=== PATIENT | female | born 1940 | race Caucasian/White ===

== ENCOUNTER 2017-08-10 06:19 | Day surgery (SDC) | payer MEDICARE ==
[~2017-08-10] VITALS: Ht 167.6 cm; Wt 41.5 kg
[~2017-08-10 06:19] MED LIST: ATORVASTATIN PO; CHOL100040 PO; FERR-82 PO; HYDR25TA PO; KRIL1CAP19 PO; LEVO88TA7 PO; LISI-613 PO; MULTIVITAMIN PO; NIAC500C3 PO; OMEP40CA37 PO; SERT50TA12 PO; UBID50TA3 PO; flax seed; stool softner
[2017-08-10] MEDS ORDERED: SODIUM CHLORIDE 0.9% 1000ML 1,000 ML IV ONE (06:41)
[2017-08-10 07:01] VITALS: BP 206/86
[2017-08-10 07:14] VITALS: BP 110/58
[2017-08-10] MEDS ORDERED: ASPI-555 PO (07:16)
[2017-08-10] MEDS ORDERED: PROPOFOL 10 MG/ML 20ML VIAL IV ONE (07:58)
[2017-08-10 08:14] VITALS: BP 110/58
== END 2017-08-10 08:40 | disposition home or self-care (01) ==
LOC: DAH 06:19
PROVIDERS: ATTEND Internal Medicine Gastroenterology
DX: K21.9 Gastro-esophageal reflux disease without esophagitis (principal); K62.1 Rectal polyp; K31.7 Polyp of stomach and duodenum; D50.0 Iron deficiency anemia secondary to blood loss (chronic); Z86.010 Personal history of colon polyps; I10 Essential (primary) hypertension; E78.5 Hyperlipidemia, unspecified; E11.9 Type 2 diabetes mellitus without complications; E03.9 Hypothyroidism, unspecified; K57.30 Diverticulosis of large intestine without perforation or abscess without bleeding; G47.33 Obstructive sleep apnea (adult) (pediatric); M19.90 Unspecified osteoarthritis, unspecified site; Z79.899 Other long term (current) drug therapy; Z79.84 Long term (current) use of oral hypoglycemic drugs; Z68.37 Body mass index [BMI] 37.0-37.9, adult
CPT/HCPCS: 43235; 82948 ×2; 93005; A4606; J2704; J7030

== ENCOUNTER → 2018-08-04 | Outpatient (CLI) | payer MEDICARE ==
[~2018-08-04] MED LIST changes: +ASPI-555 PO; -FERR-82 PO; -OMEP40CA37 PO
== END | disposition home or self-care (01) ==
LOC: RAH 07:11
PROVIDERS: ATTEND Orthopaedic Surgery
DX: S83.241A Other tear of medial meniscus, current injury, right knee, initial encounter (principal); S83.281A Other tear of lateral meniscus, current injury, right knee, initial encounter; S83.511A Sprain of anterior cruciate ligament of right knee, initial encounter; M17.11 Unilateral primary osteoarthritis, right knee; M25.461 Effusion, right knee; X58.XXXA Exposure to other specified factors, initial encounter; Y93.89 Activity, other specified; Y92.89 Other specified places as the place of occurrence of the external cause; Y99.8 Other external cause status
CPT/HCPCS: 73721

== ENCOUNTER 2019-04-01 06:47 | Day surgery (SDC) | payer MEDICARE ==
[2019-03-31 15:55] LABS: BASOPHILS % (AUTO) 0.9 % (0.0-5.0); EOSINOPHILS % (AUTO) 2.2 % (0.0-8.0); HEMATOCRIT 44.6 % (36-48); LYMPHOCYTES % (AUTO) 30.8 % (21.0-51.0); MEAN CORPUSCULAR HEMOGLOBIN 30.1 pg (27.0-33.0); MEAN CORPUSCULAR HGB CONC 33.7 g/dL (32.0-36.0); MEAN CORPUSCULAR VOLUME 89.2 fL (79-99); MONOCYTES % (AUTO) 10.3 % (3.0-13.0); NEUTROPHILS % (AUTO) 55.8 % (40.0-77.0); PLATELET COUNT (AUTO) 205 K/uL (130-400); RED CELL DISTRIBUTION WIDTH 14.1 % (11.0-15.5); WHITE BLOOD COUNT (AUTO) 7.6 K/uL (4.8-10.8)
[2019-03-31 16:11] LABS: CREATININE 0.8 mg/dL (0.5-1.5); POTASSIUM 5.2 mmol/L (3.5-5.1)
[2019-03-31 17:20] VITALS: BP 187/99
--- NOTE | 2019-03-31 18:38 | NUR ---
POTASSIUM INFORMED DR. DUNCAN OF ABNORMAL POTASSIUM LEVEL. NO ORDERS RECEIVED. PROCEED WITH PLANNED PROCEDURE.
[2019-04-01] VITALS (20 sets, daily range): BP systolic 107–154; BP diastolic 45–89
[~2019-04-01] VITALS: Ht 162.6 cm; Wt 81.4 kg
[~2019-04-01 06:47] MED LIST changes: -CHOL100040 PO; -HYDR25TA PO; -KRIL1CAP19 PO; -MULTIVITAMIN PO; +PREMC VG; -UBID50TA3 PO; -flax seed; -stool softner
[2019-04-01] MEDS ORDERED: LACTATED RINGERS 1000ML 1,000 ML IV ONE (07:45)
[2019-04-01] MEDS ORDERED: SCOPOLAMINE HYDROBROMIDE 1 EACH ADH..PATCH TD ONE (07:54)
[2019-04-01] MEDS: CEFAZOLIN SODIUM 1 GM VIAL IVP ONE ×2 (07:59→09:44)
[2019-04-01] MEDS ORDERED: GLYCOPYRROLATE 1 MG/5 ML SYRINGE ONE (08:27)
[2019-04-01] MEDS ORDERED: PROPOFOL 10 MG/ML 20ML VIAL IV ONE (08:27)
[2019-04-01] MEDS ORDERED: MIDAZOLAM HCL 1 MG/ML 2ML VIAL ONE (08:27)
[2019-04-01] MEDS ORDERED: LIDOCAINE PF 2% 5ML ABBOJECT ONE (08:27)
[2019-04-01] MEDS ORDERED: ROCURONIUM 10MG/1ML SYR 10 MG/ML ML ONE (08:28)
[2019-04-01] MEDS ORDERED: FENTANYL CITRATE PF 50 MCG/1 ML 2ML VIAL ONE (08:28)
[2019-04-01] MEDS ORDERED: NEOSTIGMINE 5MG/5ML SYR IV ONE (08:28)
[2019-04-01] MEDS ORDERED: DEXAMETHASONE SOD PHOSPHATE 4 MG/ML 1ML VIAL ONE (09:48)
[2019-04-01] MEDS ORDERED: ONDANSETRON HCL 4 MG/2 ML VIAL ONE (09:48)
[2019-04-01] MEDS ORDERED: EPHEDRINE SULFATE 50 MG/ML AMPULE ONE (10:02)
[2019-04-01] MEDS ORDERED: ACET1TAB12 PO (10:44)
[2019-04-01] MEDS ORDERED: CEPH500B PO (10:44)
[2019-04-01] MEDS ORDERED: NAPR-1192 PO (10:44)
[2019-04-01] MEDS ORDERED: RACEPINEPHRINE HCL 2.25% 0.5 ML NEB SOLN ONE (10:51)
--- NOTE | 2019-04-01 15:45 | NUR ---
gave discharge instructions to patient and family , no concerns voiced , pt received crutches.
== END 2019-04-01 13:30 | disposition home or self-care (01) ==
LOC: DAH 06:47
PROVIDERS: ATTEND Orthopaedic Surgery
DX: M23.203 Derangement of unspecified medial meniscus due to old tear or injury, right knee (principal); M23.251 Derangement of posterior horn of lateral meniscus due to old tear or injury, right knee; M94.261 Chondromalacia, right knee; M25.561 Pain in right knee; F41.9 Anxiety disorder, unspecified; M19.90 Unspecified osteoarthritis, unspecified site; E11.9 Type 2 diabetes mellitus without complications; G47.33 Obstructive sleep apnea (adult) (pediatric); E03.9 Hypothyroidism, unspecified; E78.5 Hyperlipidemia, unspecified; I10 Essential (primary) hypertension; Z79.899 Other long term (current) drug therapy; Z79.82 Long term (current) use of aspirin; Z87.891 Personal history of nicotine dependence; Z98.890 Other specified postprocedural states; Z82.49 Family history of ischemic heart disease and other diseases of the circulatory system
CPT/HCPCS: 29880; 36415; 80048; 82948; 85025; 94640; A4213; A4215; A4221; A4222; A4223; A4606; A4649; A4663; A4930; A5120; A6223; J0690; J1100; J2001; J2250; J2405; J2704; J2710; J3010; J3490 ×2; J7120

== ENCOUNTER → 2024-04-28 | Outpatient (CLI) | payer MEDICARE ==
[~2024-04-28] MED LIST changes: +ACET1TAB12 PO; -ASPI-555 PO; +ASPI-556 PO; +CEPH500B PO; -LISI-613 PO; +LISI20TA24 PO; +NAPR-1192 PO; -NIAC500C3 PO; +NIAC500C9 PO; +SERT-439 PO; -SERT50TA12 PO
--- NOTE | 2024-04-28 15:43 | HMCSR ---
APPROVED REPORT Laterality: Bilateral Indications r09.89 Doppler Spectral Velocity Analysis PSV / EDVPSV / EDV ECA (R) 97 / cm/sECA (L) 763 / cm/s dICA (R) 117 / 17 cm/sdICA (L) 68 / 20 cm/s Virgilio (R) 129 / 14 cm/smICA (L) 142 / 11 cm/s pICA (R) 134 / 23 cm/spICA (L) 461 / 73 cm/s dCCA (R) 75 / 13 cm/sdCCA (L) 85 / 13 cm/s mCCA (R) 74 / 10 cm/smCCA (L) 76 / 12 cm/s pCCA (R) 52 / 9 cm/spCCA (L) 82 / 10 cm/s Vert (R) Vert (L) 71 / cm/s Subl. (R) 641 / cm/sSubl. (L) 159 / cm/s ICA/CCA 1.79ICA/CCA 5.42 Technologist Impression Mild plaque noted in the right carotids. Evidence of 50-69% stenosis in the Right ICA with tortuousity. Right vertebral artery demonstrates retrograde flow, with velocities in the subclavian artery suggest ing >70% stenosis. Moderate plaque noted in the left carotids. Evidence of >70% stenosis in the Left ICA. Left vertebral artery appears antegrade. Conclusion As above. Conclusion As above.
== END | disposition home or self-care (01) ==
LOC: SHCH 13:42
PROVIDERS: ATTEND Internal Medicine Cardiovascular Disease
DX: I65.23 Occlusion and stenosis of bilateral carotid arteries (principal); R09.89 Other specified symptoms and signs involving the circulatory and respiratory systems
CPT/HCPCS: 93880

== ENCOUNTER → 2025-03-24 | Outpatient (CLI) | payer MEDICARE ==
--- NOTE | 2025-03-24 15:10 | HMCIMG ---
EXAM: DUPLEX ULTRASOUND OF THE CAROTID AND VERTEBRAL ARTERIES CLINICAL INFORMATION: Bilateral carotid stenosis. TECHNIQUE: Duplex ultrasound evaluation of the bilateral common, internal, and external carotid arteries and vertebral arteries was performed using hernandez-scale, color Doppler, and spectral Doppler with peak systolic velocity measurements. COMPARISON: None provided. FINDINGS: RIGHT CAROTID SYSTEM: Right common carotid artery peak systolic velocity is 83 cm/s, and right internal carotid artery peak systolic velocity is 218 cm/s with ICA to CCA ratio of 2.6, consistent with approximately 50???69% diameter stenosis by NASCET-equivalent Doppler criteria. RIGHT EXTERNAL CAROTID ARTERY: Right external carotid artery peak systolic velocity is 106 cm/s, without evidence of hemodynamically significant stenosis on Doppler criteria. 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 LEFT CAROTID SYSTEM: Left common carotid artery peak systolic velocity is 101 cm/s, and left internal carotid artery peak systolic velocity is 117 cm/s with ICA to CCA ratio of 1.2, consistent with less than 50% diameter stenosis. LEFT EXTERNAL CAROTID ARTERY: Left external carotid artery peak systolic velocity is 207 cm/s, which may reflect increased flow without definite hemodynamically significant carotid bifurcation stenosis on Doppler criteria. LEFT VERTEBRAL ARTERY: Left vertebral artery demonstrates antegrade flow with peak systolic velocity of 67 cm/s, without hemodynamically significant stenosis. IMPRESSION: * Moderate (approximately 50???69%) diameter stenosis of the right internal carotid artery based on peak systolic velocity of 218 cm/s and ICA to CCA ratio of 2.6 by NASCET-equivalent Doppler criteria; recommend aggressive vascular risk factor modification and consideration of vascular surgery or stroke neurology consultation depending on clinical presentation. * Mild (less than 50%) diameter stenosis of the left internal carotid artery based on peak systolic velocity of 117 cm/s and ICA to CCA ratio of 1.2, without hemodynamically significant narrowing; recommend continued medical management of atherosclerotic risk factors. * Retrograde high-velocity flow in the right vertebral artery (168 cm/s) consistent with at least partial subclavian steal physiology; recommend correlation with interarm blood pressure differential and consideration of CTA or MRA of the aortic arch and subclavian arteries if clinically indicated. * Antegrade flow in the left vertebral artery without hemodynamically significant stenosis on Doppler criteria. /[place]
== END | disposition home or self-care (01) ==
LOC: RAH 08:41
PROVIDERS: ATTEND Registered Nurse Medical-Surgical
DX: I65.23 Occlusion and stenosis of bilateral carotid arteries (principal)
CPT/HCPCS: 93880